=== PATIENT | male | born 1990 | race Caucasian/White ===

== ENCOUNTER 2023-08-14 08:09 | Emergency (ER) | payer OTHER, SELFPAY ==
[2023-08-14] VITALS (18 sets, daily range): BP systolic 92–159; BP diastolic 48–112; PULSE 60–97; RESP 18–20; TEMP 36.5–36.7; O2SAT 93–97; BMI 39.3; BMI 38.7
[2023-08-14 08:36] LABS: UTC Influenza A Antigen Negative (Negative); UTC Influenza B Antigen Negative (Negative)
--- NOTE | 2023-08-14 08:36 | ED_ITS ---
Discharge Plan Disposition Patient Disposition: Home, Self-Care Condition: Good Prescriptions Prescriptions: No Action No Known Home Medications Referrals Follow up/Referrals: Zach Cuba [Primary Care Provider] - See instructions Activity Restrictions/Add. Instructions Additional Instructions/Restrictions: We have obtained CT imaging of your head, neck, to evaluate for any evidence of bleeding, infection, vascular injury, stroke. These are not revealing any acute findings. As we discussed, there is a small chance that the scans are not able to show us a bleed, that a lumbar puncture would show us, and a lumbar puncture would be the best way to test for infection. We discussed the risks and benefits of further testing with a lumbar puncture or further CT imaging. We discussed that there is a small but not insignificant chance that you could worsen without the use test and that could lead to disability or . Given that you have improvement of your symptoms and have an understanding of these risks and are okay with discharge at this time with a very low threshold to return to the emergency department, you are deemed stable for discharge at this time with this information in mind. Please return with any new or worsening symptoms such as nausea, vomiting, fever, recurrent pain, pain elsewhere, neurologic symptoms Clinical Impressions Clinical Impression: Headache Qualifiers: Headache type: unspecified Headache chronicity pattern: acute headache Intractability: not intractable Qualified Code(s): R51.9 - Headache, unspecified Discharge ED Provider: Isaac Jenkins [facility] [place] [facility] <Isaac Jenkins MD - Last Filed: 08/15/23 08:00> General Chief complaint: Headache Stated complaint: vomiting , headache Time Seen by Provider: 08/14/23 08:36 History of Present Illness Provider Complaint: Patient presents with headache. Headache started yesterday around 3 pm. He was feeding the cows when it started. He has pain radiating up the back of his neck radiating thru to his forehead. He has blurry vision. He had numbness and tingling in his left arm yesterday. His chiropractor was there for the horses and did some adjustments. It did offer very temporary relief then headache came back even worse. He took ibuprofen without relief. He took Nyquil last night hoping he could just fall asleep. Around 3 am he said the headache was so bad that he contemplated getting his pistol. He states he fell asleep for a few minutes on the way here but headache returned as soon as he woke up. He has been dry heaving. Lights are very painful. He does not have a history of migraines and has never had a headache of this severity in his life. He states headache is worse when he sits down, moves around He states he has no chronic health issues and is on no medicines. Isaac Jenkins MD, I obtained additional history after patient was transferred from urgent treatment center to the emergency department at the same building for additional evaluation. Patient states to me that he had acute worsening of headache that woke him up from sleep, located in the back of his head and radiating to the front, which is severe, constant, with no associated vision complaints. He states he started to have a headache yesterday of more mild characteristic. He describes chronic neck issues but no history of migraines. He was seen by a chiropractor after the headache began yesterday, had cervical spinal manipulation with no imp rovement, however no worsening of symptoms. He denies any fevers or chills. He describes some mild paresthesias in his left upper extremity. He has not had such paresthesias before. Symptoms were not exertional in onset. He denies any nuchal rigidity. He denies any neck trauma outside of the cervical spinal manipulation. He has had nausea and vomiting upon arrival to the emergency department. He describes photophobia, phonophobia. He describes multiple recent stressors which may have worsened the headache. Related Data Home Medications Medication Instructions Recorded Confirmed No Known Home Medications 08/14/23 08/14/23 Allergies Allergy/AdvReac Type Severity Reaction Status Date / Time No Known Allergies Allergy Verified 08/14/23 08:29 <BRAXTON Bethea - Last Filed: 08/14/23 08:47> General Mode of Arrival: Ambulatory Source of Information: Patient Limitations: No Limitations Description of Symptoms (Recalled from Triage Doc. by RN): PATIENT REPORTS A HEADACHE THAT STARTED YESTERDAY AND GOT WORSE APPROX 0300 THIS MORNING. HE STATES THE PAIN STARTS AT THE BACK OF HEAD AND RADIATES TO TOP OF HEAD. HE STATES IT IS THE WORSE HEADACHE HE HAS EVER HAS. DENIES HISTORY OF MIGRAINES. HE REPORTS HE HAS HAD BLURRY VISION AND VOMITING. HE ALSO STATES HE HAS BEEN HAVING SOME SINUS CONGESTION RECENTLY HEENT Symptoms (Recalled from RN notes): Yes Resp Symptoms (Recalled from RN notes): No Skin Symptoms (Recalled from RN notes): No MS Symptoms (Recalled from RN notes): No Functional Status (Recalled from RN notes): WNL History of Present Illness Provider Complaint: Patient presents with headache. Headache started yesterday around 3 pm. He was feeding the cows when it started. He has pain radiating up the back of his neck radiating thru to his forehead. He has blurry vision. He had numbness and tingling in his left arm yesterday. His chiropractor was there for the horses and did some adjustments. It did offer very temporary relief then headache came back even worse. He took ibuprofen without relief. He took Nyquil last night hoping he could just fall asleep. Around 3 am he said the headache was so bad that he contemplated getting his pistol. He states he fell asleep for a few minutes on the way here but headache returned as soon as he woke up. He has been dry heaving. Lights are very painful. He does not have a history of migraines and has never had a headache of this severity in his life. He states headache is worse when he sits down, moves around He states he has no chronic health issues and is on no medicines. Onset (ago): day(s) (1) Location: head Radiation: neck Severity: severe Severity scale (1-10): 9 Quality: burning and sharp Consistency: constant Relieving factors: none Exacerbating factors: movement Associated symptoms: headaches and nausea/vomiting Treatments prior to arrival: NSAID Worker's Comp Is this a Worker's Comp case?: No [facility] <Isaac Jenkins MD - Last Filed: 08/15/23 08:00> [facility] Medical History (Updated 08/14/23 @ 10:12 by Isaac Jenkins MD) No significant past medical history Social History (Updated 08/14/23 @ 08:47 by BRAXTON Bethea) Smoking Status: Unknown if ever smoked alcohol intake: never current occupational status: employed Travel in the last 8 weeks: None <BRAXTON Btehea - Last Filed: 08/14/23 08:47> [facility] Disclaimer: The information contained in this section may have been updated after the patient was seen, as this information can be updated by other users. <BRAXTON Bethea - Last Filed: 08/14/23 08:47> ROS Obtained: Yes All systems reviewed & no additional complaints except as documented Constitutional Constitutional: Reports as per HPI and Reports headache(s) ENT Ears, Nose, Mouth, and Throat: Reports disequilibrium, Reports headache(s) and Reports vertigo Neurologic Neurologic: Reports disequilibrium, Reports headache(s), Reports other visual disturbances, Reports radicular pain and Reports vertigo Physical Exam <Isaac Jenkins MD - Last Filed: 08/15/23 08:00> General Comment: Isaac Enciso MD: Similar exam upon presentation in the emergency department, nausea, vomiting, acute distress Expanded Neurological Exam Comment: Isaac Jenkins MD: Pupils equal and reactive to light, extraocular movements intact, visual acuity within normal limits, visual guerrero intact, no nuchal rigidity, negative Kernig's sign, no past-pointing, no dysdiadochokinesia, negative Romberg test, sensation at this time equal in bilateral upper and lower extremities, full motor strength in bilateral upper and lower extremities, patient is able to symmetrically raise eyebrows, close eyes, no tongue deviation, no facial paresthesias, no midline cervical spinal tenderness to palpation. Pulses equal in bilateral upper extremities <BRAXTON Bethea - Last Filed: 08/14/23 08:47> General General appearance: alert and other (patient has hoody over eyes, moaning in pain) Head Head exam: atraumatic Eye Eye exam: Present PERRL Neck Neck exam: Present tenderness (tender muscles) Respiratory Respiratory exam: Present normal lung sounds bilaterally Cardiovascular Cardiovascular exam: Present regular rate and normal rhythm Extremities Exam Extremities exam: Present normal inspection Neurological Exam Neurological exam: Present alert and oriented X3 Psychiatric Psychiatric exam: Present normal affect Skin Skin exam: Present warm, dry and intact Medical Decision Making <Isaac Jenkins MD - Last Filed: 08/15/23 08:00> Lab Data 08/14/23 08:48 08/14/23 08:48 Medical Decision Narrative: Transferred to ER for further workup of worst headache of my life Isaac Jenkins MD: Patient arrives to the emergency department for evaluation of headache. Differential diagnosis includes Meningitis, encephalitis, sinusitis, subarachnoid hemorrhage, hemorrhagic stroke, venous sinus thrombosis, IIH, carbon monoxide poisoning, migraine, tension headache, cluster headache, trigeminal neuralgia, posttraumatic, hypertension. Regarding this differential diagnosis, patient is afebrile at this time, no nuchal rigidity, NIH stroke scale is 0, patient denies any risk factors concerning for venous sinus thrombosis upon questioning, no exposures to suggest carbon monoxide poisoning, patient does not have history of migraine but does exhibit some signs and symptoms characteristic of migraine headache, I do maintain an index suspicion for cervical artery dissection given recent cervical spinal manipulation however this headache preceded his symptoms. He denies any signs or symptoms concerning for sinusitis. Symptoms are more located in the back of his head in regard to cluster headache. In order to explore this differential, workup included head CT, C-spine CT, head and neck CTA, flu testing was performed by urgent treatment center which was negative, laboratory analysis included CBC, CMP, PT, INR. Labs were independently visualized and interpreted by me significant for COVID not detected, leukocytosis to 12.1 in the absence of fever, hyperglycemia with glucose 145. Imaging was independently visualized and interpreted by me significant for no acute findings. In the interim, patient was treated with magnesium sulfate 2 g, acetaminophen 1 g, ondansetron 4 mg, Compazine 10 mg, dexamethasone 10 mg, diphenhydramine 25 mg. Upon repeat evaluation patient has complete resolution of his symptoms. I discussed my clinical impression at this time including the limitations of our workup at this time, especially in the setting of headache that is lasted over 6 hours. There is some recent literature to suggest that subarachnoid hemorrhage evaluation with CT imaging may still be of high sensitivity beyond the traditional 6-hour window, however, given leukocytosis, given persistence of symptoms greater than 6 hours, a lumbar puncture would represent the most appropriate next step at this time. I explained the risks and benefits of lumbar puncture in detail and patient expressed a good understanding of our discussion. Of course, lumbar puncture is not without its risks and patient does have reportedly complete resolution of symptoms. At this time, after shared decision-making, patient elects to assume discussed risks of discontinuation of further testing at this time and be discharged from the emergency department. I discussed with him that any new or worsening symptoms require repeat evaluation, and he and family member at [facility] expressed a willingness to return under the circumstances. With this discussion in mind, patient is discharged from the emergency department at this time. He will follow-up as needed. <Fatoumata Nagy Stone, PA - Last Filed: 08/14/23 08:47> Shravan Inquiry Pt receiving controlled substance: No Vital Signs: 08/14/23 08:15 Temperature 98.0 F Temperature Source Oral Pulse Rate [Left Brachial] 97 H Respiratory Rate 20 Blood Pressure [Left Arm] 134/91 H Blood Pressure Mean [Left Arm] 105 Blood Pressure Source [Left Arm] Automatic Cuff Blood Pressure Position [Left Arm] Sitting 02 Sat by Pulse Oximetry 95 Oxygen Delivery Method Room Air Medical Decision Narrative: Transferred to ER for further workup of worst headache of my life
--- NOTE | 2023-08-14 08:38 | CT_ITS ---
FINAL REPORT CLINICAL HISTORY: severe headache, recent chiropracter neck adjust COMPARISON: None FINDINGS: Axial images of the head were obtained without contrast. Coronal and sagittal reformatted images were also obtained.This study was performed with techniques to keep radiation doses as low as reasonably achievable (ALARA). Individualized dose reduction techniques using automated exposure control or adjustment of mA and/or kV according to the patient's size were employed. There is no evidence of intracranial hemorrhage or mass. The ventricular size is within normal limits. There is no evidence of shift of the midline structures. No abnormal extra axial fluid collection is identified. No skull abnormality is seen on the bone window images. There is mild mucosal thickening present in the right maxillary sinus. IMPRESSION: No acute intracranial abnormality. Reviewed, Interpreted and Dictated by Jose Roberto Pelayo III, MD Transcribed by Graciela Haines Authenticated and [facility]
--- NOTE | 2023-08-14 08:39 | CT_ITS ---
FINAL REPORT CLINICAL HISTORY: severe headache, recent chiropracter neck adjust COMPARISON: None FINDINGS: Axial CT images of the cervical spine were obtained without contrast. Sagittal and coronal reformatted images were also obtained. This study was performed with techniques to keep radiation doses as low as reasonably achievable (ALARA). Individualized dose reduction techniques using automated exposure control or adjustment of mA and/or kV according to the patient's size were employed. There is no evidence of fracture or dislocation. The bony alignment is normal. Mild and moderate degenerative change is present with multilevel osteophytes. There is no evidence of canal stenosis. No paraspinous soft tissue abnormality is seen. Limited images of the upper thorax are unremarkable. C2-3: No evidence of significant canal stenosis or neural foraminal narrowing. C3-4: Disc osteophyte complex present with mild bilateral neural foraminal narrowing. C4-5: Disc osteophyte complex present with mild left neural foraminal narrowing. C5-6: Disc osteophyte complex with mild left neural foraminal narrowing. C6-7: No evidence of significant canal stenosis or neural foraminal narrowing. C7-T1: No evidence of significant canal stenosis or neural foraminal narrowing. IMPRESSION: No fracture or acute bony abnormality identified. Reviewed, Interpreted and Dictated by Jose Roberto Pelayo III, MD Transcribed by Graciela Haines Authenticated and [facility]
--- NOTE | 2023-08-14 08:39 | CT_ITS ---
FINAL REPORT TECHNIQUE: Thin section axial CT with IV contrast supplemented with multiplanar reconstruction under CT angiogram protocol. 3-D reconstructions were performed. This study was performed with techniques to keep radiation doses as low as reasonably achievable (ALARA). Individualized dose reduction techniques using automated exposure control or adjustment of mA and/or kV according to the patient's size were employed. CLINICAL HISTORY: severe headache, recent chiropracter neck adjust COMPARISON: None FINDINGS: The distal vertebral, basilar and distal internal carotid arteries have an unremarkable appearance. No aneurysm is seen. Major intracranial vessels are patent without significant stenosis. IMPRESSION: Unremarkable MRA of the intracranial vessels. Reviewed, Interpreted and Dictated by Jose Roberto Pelayo III, MD Transcribed by Graciela Haines Authenticated and . [facility]
--- NOTE | 2023-08-14 08:39 | CT_ITS ---
FINAL REPORT TECHNIQUE: Thin-section axial CT with IV contrast supplemented with multi planar reconstruction under CT angiogram protocol was performed of the neck. This study was performed technique to keep radiation doses as low as reasonably achievable, (ALARA). NASCET criteria was utilized during interpretation. CLINICAL HISTORY: severe headache, recent chiropracter neck adjust COMPARISON: None FINDINGS: Aortic arch: Arch shows no significant narrowing. Great vessel origins are widely patent. Right carotid: No significant stenosis is seen at the cervical common or internal carotid artery. Left carotid: No significant stenosis is seen at the cervical common or internal carotid artery. Vertebrals: The vertebral arteries are codominant. No significant stenosis is present. IMPRESSION: No evidence of significant stenosis or major branch occlusion. Reviewed, Interpreted and Dictated by Jose Roberto Pelayo III, MD Transcribed by Graciela Haines Authenticated and [facility]
--- NOTE | 2023-08-14 08:40 | PC.NURSE ---
PATIENT SENT TO ER PER Gera LIMON FOR FURTHER EVALUATION. REPORT GIVEN TO DR. LÓPEZ BY Gera LIMON. PATIENT AMBULATED TO ER WITH [facility] STAFF ASSIST. PATIENT REFUSED WHEELCHAIR TRANSPORT STATING THAT SITTING MAKES HIS HEAD HURT WORSE. MOTHER AT BEDSIDE
--- NOTE | 2023-08-14 08:40 | PC.NURSE ---
Pt arrived to ED room 10
--- NOTE | 2023-08-14 08:42 | PC.NURSE ---
Dr. Jenkins at BS for pt eval
--- NOTE | 2023-08-14 08:43 | PC.NURSE ---
DR LÓPEZ AT BEDSIDE
[2023-08-14] MEDS: LACTATED RINGERS 1000ML 1,000 ML 999 ML IV (08:47)
[2023-08-14] MEDS: FENTANYL 100MCG/2ML VIAL 50 MCG IV (08:48)
[2023-08-14] MEDS: ONDANSETRON 4MG/2ML VIAL 4 MG IV (08:56)
--- NOTE | 2023-08-14 08:57 | PC.NURSE ---
PT TO CT
[2023-08-14 08:58] LABS: Basophils # 0.1 K/mm3 (0-0.2); Basophils % 0.4 % (0.1-2.0); Eosinophils # 0.2 K/mm3 (0.0-0.4); Eosinophils % 1.9 % (0.1-12.0); Hematocrit 42.6 % (42.0-52.0); Hemoglobin 16.2 g/dL (14.1-18.0); Lymphocytes # 1.7 K/mm3 (0.7-4.5); Lymphocytes % 13.9 % (10-50); Mean Corpuscular HGB Conc 38.1 g/dL (31.8-35.4); Mean Corpuscular Hemoglobin 33.7 pg (27.0-31.2); Mean Corpuscular Volume 88.4 fl (80-94); Mean Platelet Volume 7.5 fl (7.4-10.4); Monocytes # 0.6 K/mm3 (0.1-1.0); Monocytes % 4.8 % (1.7-9.3); Neutrophils # 9.6 K/mm3 (1.8-7.8); Platelet Count 278 K/mm3 (142-424); Red Blood Count 4.81 M/mm3 (4.60-6.20); Red Cell Distribution Width 13.5 % (11.5-17.5); White Blood Count 12.1 K/mm3 (4.8-10.8)
[2023-08-14 09:02] LABS: Chloride 107 mmol/L (98-107); Sodium 138 mmol/L (136-145)
[2023-08-14 09:03] LABS: Potassium 4.3 mmoL/L (3.5-5.1)
[2023-08-14 09:05] LABS: Alanine Aminotransferase 65 U/L (12-78); Albumin Level 4.4 g/dl (3.5-5.0); Alkaline Phosphatase 90 U/L (38-126); Anion Gap 12.3 mEq/L (5-15); Aspartate Amino Transferase 45 U/L (17-59); Bilirubin,Total 0.6 mg/dl (0.2-1.3); Blood Urea Nitrogen 11 mg/dl (9-20); Carbon Dioxide 23 mmol/L (22.0-30.0); Creatinine Clearance Estimated 225 mL/min (50-200); Estimated Glomerular Filt Rate 111 ml/min (>60); GFR (African American) 134 ML/MIN (>60)
[2023-08-14 09:06] LABS: Albumin/Globulin Ratio 1.3 (1.1-1.8); Globulin 3.3 g/dL (1.3-3.2); Glucose 145 mg/dl (74-100); Total Protein,Serum 7.7 g/dl (6.3-8.2)
[2023-08-14] MEDS: IOPAMIDOL-370 (76%);100ML BOTTLE 100 ML IV (09:06)
[2023-08-14] MEDS: SODIUM CHLORIDE 0.9% 10ML SYR (RAD ONLY) 10 ML IV (09:06)
--- NOTE | 2023-08-14 09:07 | PC.NURSE ---
PT RETURNED FROM CT
[2023-08-14 09:11] LABS: INR 0.98 (0.9-1.1); Prothrombin Time 10.6 seconds (10.1-12.5)
[2023-08-14] MEDS: DEXAMETHASONE 4MG TABLET 10 MG PO (09:18)
[2023-08-14] MEDS: ACETAMINOPHEN 500MG TAB 1000 MG PO (09:19)
[2023-08-14] MEDS: diphenhydrAMINE 50MG/ML VIAL 25 MG IV (09:19)
[2023-08-14] MEDS: PROCHLORPERAZINE 10MG/2ML VIAL 10 MG IV (09:19)
[2023-08-14] MEDS: MAGNESIUM SULFATE IN WATER 2 GM/50 ML PIGGYBACK IV (09:21)
[2023-08-14 09:23] LABS: Coronavirus 19, PCR Not Detected (NotDetected); Influenza A, PCR Not Detected (NotDetected); Influenza B, PCR Not Detected (NotDetected)
--- NOTE | 2023-08-14 09:38 | PC.NURSE ---
PT REPORTS NO PAIN AT THIS TIME
--- NOTE | 2023-08-14 09:43 | PC.NURSE ---
PT ASSISTED TO BR
--- NOTE | 2023-08-14 10:03 | PC.NURSE ---
DR LÓPEZ AT BEDSIDE
--- NOTE | 2023-08-14 10:45 | PC.NURSE ---
Pt ambulatory to bathroom
== END 2023-08-14 10:46 | disposition home or self-care (01) ==
LOC: UTC 08:34 → ER 08:36
PROVIDERS: Physician Assistant; Emergency Provider Emergency Medicine; PCP Family Medicine
DX: R51.9 Headache, unspecified (principal); M54.2 Cervicalgia; H53.8 Other visual disturbances; R20.0 Anesthesia of skin; R20.2 Paresthesia of skin; R11.10 Vomiting, unspecified
CPT/HCPCS: 70450; 70496; 70498; 72125; 80053; 85025; 85610; 87636; 87804; 96361; 96365; 96375; 99285; J2405; J3475; Q9967

== ENCOUNTER 2023-11-06 14:41 | Emergency (ER) | payer OTHER, SELFPAY ==
[2023-11-06 14:50] VITALS: BP 129/101; PULSE 76; RESP 20; TEMP 36.7; O2SAT 98; BMI 36.2
--- NOTE | 2023-11-06 15:03 | XR_ITS ---
FINAL REPORT CLINICAL HISTORY: HURT FOOT IN ALTERCATION WEIGHT BEARING COMPARISON: None FINDINGS: RIGHT FOOT: Three views of the right foot were obtained. There are postoperative changes in the distal fibula. There is a fracture of the proximal 5th metatarsal with up to 5 mm of distraction. There is mild degenerative change. There is a sclerotic focus of the 2nd middle phalanx. There is no soft tissue abnormality. IMPRESSION: Proximal 5th metatarsal fracture. Reviewed, Interpreted and Dictated by Jose Roberto Pelayo III, MD Transcribed by Twila Branch Authenticated and [facility]
--- NOTE | 2023-11-06 15:05 | ED_ITS ---
Discharge Plan Disposition Patient Disposition: Home, Self-Care Condition: Good Prescriptions Prescriptions: New ibuprofen [IBU] 800 mg tablet 800 mg PO TIDP PRN (Reason: Moderate Pain) Qty: 20 0RF Referrals Follow up/Referrals: Ella Kinney APRN [Nurse Practitioner] - See instructions Halie Garrido APRN [Primary Care Provider] - See instructions Rosemary Boggs DPM [Staff Physician] - See instructions Activity Restrictions/Add. Instructions Additional Instructions/Restrictions: Wear walking boot as instructed Take ibuprofen for pain Ice 20 min every couple of hours will help with bruising and swelling Call Podiatry on Thursday for appointment Clinical Impressions Clinical Impression: Metatarsal fracture Instructions Patient Instructions: How To Perform RICE (Rest, Ice, Compress, Elevate), How to Use a Walking Boot Discharge ED Provider: Juli Barahona [facility] [place] HPI General Stated complaint: AO4/7@home, pain in Rt ankle Mode of Arrival: Ambulatory Source of Information: Patient Limitations: No Limitations Time Seen by Provider: 11/06/23 15:05 Description of Symptoms (Recalled from Triage Doc. by RN): PATIENT STATES HE FRACTURED HIS FOOT ON THURSDAY. HE REPORTS HAVING XRAYS AND BEING SEEN FOR IT, AND STATES HE WAS SUPPOSED TO FOLLOW UP WITH DR. BOGGS BUT WHEN HE GOT HERE THE OFFICE WAS CLOSED. HEENT Symptoms (Recalled from RN notes): No Resp Symptoms (Recalled from RN notes): No Skin Symptoms (Recalled from RN notes): No MS Symptoms (Recalled from RN notes): Yes Functional Status (Recalled from RN notes): WNL History of Present Illness Provider Complaint: Patient states that he was seen at another hospital on Thursday after he twisted his foot and xrays there showed he had fractured his 5th metatarsal bone States that they recommended that he follow up with a foot doctor and he called earlier to Dr Hernandez office but by the time he got here they had already closed and he wasnt sure what to to do so he came to the [facility] tates that this morning his foot looked a little red but not now and he wanted to get it looked at States that he is already in walking boot and crutches but not been using the crutches and not sure if there was something else he needed to be doing until he can get into the clinic Related Data Previous Rx's Medication Instructions Recorded ibuprofen 800 mg tablet (IBU) 800 mg PO TIDP PRN Moderate Pain 11/06/23 #20 tabs Allergies Allergy/AdvReac Type Severity Reaction Status Date / Time No Known Allergies Allergy Verified 08/14/23 08:29 Worker's Comp Is this a Worker's Comp case?: No [facility] Disclaimer: The information contained in this section may have been updated after the patient was seen, as this information can be updated by other users. Medical History (Updated 11/06/23 @ 16:33 by Juli Barahona APRN) No significant past medical history Social History (Updated 08/14/23 @ 08:47 by BRAXTON Bethea) Smoking Status: Unknown if ever smoked alcohol intake: never current occupational status: employed Travel in the last 8 weeks: None ROS Obtained: Yes All systems reviewed & no additional complaints except as documented and Yes Systems reviewed as appropriate & no additional complaints except as documented ENT Ears, Nose, Mouth, and Throat: Reports system reviewed and no additional complaints, except as documented and Reports as per HPI Cardiovascular Cardiovascular: Reports system reviewed and no additional complaints, except as documented and Reports as per HPI Respiratory Respiratory: Reports system reviewed and no additional complaints, except as documented and Reports as per HPI Gastrointestinal Gastrointestingal: Reports system reviewed and no additional complaints, except as documented and as per HPI Musculoskeletal Musculoskeletal: Reports system reviewed and no additional complaints, except as documented and Reports as per HPI Comments: foot injury last Thursday Physical Exam General General appearance: alert and in no apparent distress ENT ENT exam: Present mucous membranes moist Respiratory Respiratory exam: Present normal lung sounds bilaterally; Absent respiratory distress or wheezes Cardiovascular Cardiovascular exam: Present regular rate, normal rhythm and normal heart sounds Expanded Lower Extremity Exam Right: Ankle exam: Present swelling (patient reports has had previous ankle surgery, denies pain in ankle) Foot/toe exam: Present tenderness, swelling and ecchymosis Neurological Exam Neurological exam: Present alert, oriented X3 and normal gait Medical Decision Making Shravan Inquiry Pt receiving controlled substance: No Shravan was queried for this patient: No Vital Signs: 11/06/23 14:50 Temperature 98.0 F Temperature Source Oral Pulse Rate [Left Brachial] 76 Respiratory Rate 20 Blood Pressure [Left Arm] 129/101 H Blood Pressure Mean [Left Arm] 110 Blood Pressure Source [Left Arm] Automatic Cuff Blood Pressure Position [Left Arm] Sitting 02 Sat by Pulse Oximetry 98 Oxygen Delivery Method Room Air Orders (Tests/Meds): ORDERS Category Date Time Status XR ankle RT min 3V Stat Exams 11/06/23 14:49 Stop Req XR foot RT min 3V Stat Exams 11/06/23 14:49 Stop Req XR foot RT min 3V Stat Exams 11/06/23 15:03 Ordered Radiology Data #1: Image(s): Foot/Toes Image Reviewed: Yes I have reviewed radiologist's interpretation IMPRESSION: Proximal 5th metatarsal fracture. Medical Decision Narrative: Patient states that he was seen at [facility] initially and has disk with him and has copy of reading of transverse fracture involving the base of the fifth metatarsal, They placed him in walking boot and give him crutches foot xrays obtained here weight bearing and will refer to podiatry for further treatment and evaluation
[2023-11-06 16:20] VITALS: BP 123/81; PULSE 87; RESP 19; TEMP 36.8; O2SAT 99
== END 2023-11-06 16:20 | disposition home or self-care (01) ==
PROVIDERS: Emergency Provider Nurse Practitioner; PCP Nurse Practitioner Family
DX: S92.351A Displaced fracture of fifth metatarsal bone, right foot, initial encounter for closed fracture (principal); X50.1XXA Overexertion from prolonged static or awkward postures, initial encounter
CPT/HCPCS: 73630; 99204; 99212; G0463